=== PATIENT | female | born 1965 | race African-American/Black ===

== ENCOUNTER 2018-01-19 05:42 | Day surgery (SDC) | payer MEDICARE ==
[2018-01-18 10:45] VITALS: BMI 38.0
[2018-01-19] MEDS ORDERED: EPINEPHrine 0.3 MG in Ophthalmic Irrigation Solution 500 ML IVP SCH (05:45)
[2018-01-19] MEDS ORDERED: Cyclopentolate 1% Opth Drop 2 ML BOT ONE (06:04)
[2018-01-19] MEDS ORDERED: Phenylephrine 2.5% Ophth Soln 5 ML BOT ONE (06:04)
[2018-01-19] MEDS ORDERED: Midazolam HCl 2 mg/2 ml Vial ONE (06:49)
[2018-01-19] MEDS ORDERED: PROPOFOL 20 ML ONE (06:49)
[2018-01-19] MEDS ORDERED: Fentanyl 100 MCG/2 ML VIAL ONE (06:49)
--- NOTE | 2018-01-19 09:33 | OP ---
DATE OF PROCEDURE: 01/19/2018 PREOPERATIVE DIAGNOSES: Proliferative diabetic retinopathy and vitreous hemorrhage, right eye. POSTOPERATIVE DIAGNOSES: Proliferative diabetic retinopathy and vitreous hemorrhage, right eye. PROCEDURE: SURGEON: Dr. Ganesh Villalobos ANESTHESIA: Local with monitored anesthesia care. PROCEDURE IN DETAIL: The patient was identified in the preoperative holding area. Appropriate conse nt for the planned surgical procedure on the right eye had been obtained. The patient was transporte d to the operative suite. Appropriate cardiopulmonary established. Local anesthesia obtained using retrobulbar and modified Van Lint lid block using 50/50 mixture of 4% lidocaine, 0.75% bupivacaine. The patient was prepped and draped in the usual sterile manner for ophthalmic surgery on the right ey e. Lid speculum was placed in the right eye. The 25-gauge trocars were placed in conjunctiva and sc marcelle supratemporally, inferotemporally, and supranasally. Infusion line was placed inferotemporally. Light pipe and vitreous cutter were inserted into the eye. Core vitrectomy was performed. Areas o f traction were removed from the retinal periphery in multiple locations using vitreous cutter. Memb juanito was peeled into the retinal periphery without complications. Retinal photocoagulation was placed into all non-macular areas of the retina. No further bleeding wa s identified. Trocars were removed. Eye was noted to retain pressure well. Retrobulbar Kenalog and subconjunctival Ancef were placed. Antibiotic ointment placed, and the eye was patched and shielded . The patient was taken to the postoperative recovery unit in good condition having suffered no imme diate perioperative complications. DISCHARGE INSTRUCTIONS: The patient was instructed to keep patch and shield on, avoid lifting or ashley ding, and follow up in the morning with Dr. Villalobos.
[2018-01-19] MEDS ORDERED: PROPOFOL 200 MG/20 ML VIAL ONE (14:27)
[2018-01-19] MEDS ORDERED: Lidocaine 4% PF 5 ML AMP ONE (14:27)
[2018-01-19] MEDS ORDERED: CEFAZOLIN 1 GM VIAL ONE (14:27)
[2018-01-19] MEDS ORDERED: Lidocaine 1% PF 5 ML VIAL ONE (14:27)
[2018-01-19] MEDS ORDERED: Bupivacaine 0.75% 10 ML AMP ONE (14:27)
[2018-01-19] MEDS ORDERED: Maxitrol 0.1% Opth Oint 3.5 GM TUBE ONE (14:27)
[2018-01-19] MEDS ORDERED: Triamcinolone 40 MG/ML VIAL ONE (14:27)
== END 2018-01-19 08:56 | disposition home or self-care (01) ==
LOC: SDC 05:42
PROVIDERS: ATTEND Ophthalmology Retina Specialist
PROC: 08943ZZ Drainage of Right Vitreous, Percutaneous Approach (ICD-10-PCS; principal; 2018-01-19)
PROC: 08QE3ZZ Repair Right Retina, Percutaneous Approach (ICD-10-PCS; 2018-01-19)
DX: H43.11 Vitreous hemorrhage, right eye (principal); E11.3591 Type 2 diabetes mellitus with proliferative diabetic retinopathy without macular edema, right eye; Z79.899 Other long term (current) drug therapy; Z88.5 Allergy status to narcotic agent; Z98.41 Cataract extraction status, right eye; Z98.42 Cataract extraction status, left eye; Z96.1 Presence of intraocular lens
CPT/HCPCS: 36416; J0171; J0690; J2001; J2250; J2704; J3010; J3301; J3490

== ENCOUNTER 2018-01-20 12:10 | Outpatient (CLI) | payer MEDICARE | END 2018-01-20 12:11 | disposition home or self-care (01) | LOC: BICMAMMO 12:10 | PROVIDERS: ATTEND Obstetrics & Gynecology | DX: Z12.31 Encounter for screening mammogram for malignant neoplasm of breast (principal); R92.1 Mammographic calcification found on diagnostic imaging of breast; Z80.3 Family history of malignant neoplasm of breast | CPT/HCPCS: 77063; 77067 ==

== ENCOUNTER 2020-03-06 14:47 | Outpatient (CLI) | payer MEDICARE, OTHER ==
[2020-03-07 12:04] LABS: SARS-CoV-2 MS2 Positive; SARS-CoV-2 N Gene Negative; SARS-CoV-2 S Gene Negative; SARS-CoV-2 by NAA Not Detected (NotDetected); SARS-CoV-2 orf1ab Negative
== END 2020-03-06 14:48 | disposition home or self-care (01) ==
LOC: LABSCS 14:47
PROVIDERS: ATTEND Physical Medicine & Rehabilitation
DX: Z20.828 Contact with and (suspected) exposure to other viral communicable diseases (principal)
CPT/HCPCS: 87635; U0003

== ENCOUNTER 2020-03-10 10:03 | Day surgery (SDC) | payer MEDICARE ==
[2020-03-07 09:44] VITALS: BMI 40.3
--- NOTE | 2020-03-10 12:21 | MRI ---
MRI lumbar spine noncontrast HISTORY: Low back pain. Lumbar stenosis. FINDINGS: Radiographs are not available for direct correlation, therefore the lowest lumbar type vert ebra will be designated as L5, with the remainder number accordingly. The conus medullaris has normal appearance. Vertebral body heights are maintained. Mild discogenic en dplate changes within the bone marrow. Mild posterior disc bulge at the T11-12 level. T12-L1, L1-2: Mild osteophytosis. Central canal and neural foramina are patent. L2-3: Desiccation of the disc. Minimal disc bulge. Posterior ligamentous thickening. Hypertrophy of t he facets with bilateral joint fluid. Mild stenosis of the central canal and each neural foramen. L3-4: Mild disc space narrowing. Desiccation of the disc. Minimal degenerative spondylolisthesis. Mil d posterior disc bulge. Prominent posterior ligaments thickening and facet hypertrophy with joint fluid. There is severe stenosis of the central canal. Moderate stenosis of each neural foramen, right greater than left. L4-5: Disc space narrowing. Hyperintensity within the posterior aspect of the disc space may represen t intradiscal hemorrhage. Left posterior annular fissure. Mild diffuse posterior disc bulge and circumferential degenerative changes. Moderate stenosis of the central canal. Mild stenosis of each n eural foramen. L5-S1: Posterior annular fissure of the disc. Osseous hypertrophy of the facets. Thecal sac is patent . Moderate right and moderate to severe left foraminal stenoses. IMPRESSION : Prominent multilevel degenerative changes throughout the lumbar spine as detailed above, with central canal and foraminal stenoses. Central canal stenosis most severe at the L3-4 level.
[2020-03-10] MEDS ORDERED: EPHEDRINE 25 MG/5 ML SYRINGE ONE (13:12)
[2020-03-10] MEDS ORDERED: PROPOFOL 200 MG/20 ML VIAL ONE (13:12)
== END 2020-03-10 13:17 | disposition home or self-care (01) ==
LOC: MRI 10:03
PROVIDERS: ATTEND Physical Medicine & Rehabilitation
DX: M48.061 Spinal stenosis, lumbar region without neurogenic claudication (principal); M99.33 Osseous stenosis of neural canal of lumbar region; M25.78 Osteophyte, vertebrae; Z79.899 Other long term (current) drug therapy; Z88.5 Allergy status to narcotic agent
CPT/HCPCS: 72148; J2704

== ENCOUNTER 2021-02-23 16:38 | Outpatient (CLI) | payer MEDICARE ==
[2021-02-23 18:13] LABS: ALT (SGPT) 31 U/L (8-55); AST (SGOT) 25 U/L (5-34); Albumin 3.9 g/dL (3.5-5.0); Alkaline Phosphatase 82 U/L (40-110); Anion Gap 14 mmol/L (10-20); BUN (Urea Nitrogen) 22 mg/dL (9.8-20.1); Bilirubin, Total 0.2 mg/dL (0.2-1.2); Calc. Creatinine Clearance 0 mL/min (70-130); Calcium 9.7 mg/dL (7.8-10.44); Carbon Dioxide 23 mmol/L (22-29); Chloride 113 mmol/L (98-107); Glucose 105 mg/dL (70-105); Potassium 3.9 mmol/L (3.5-5.1); Protein, Total 6.9 g/dL (6.0-8.3); Sodium 146 mmol/L (136-145)
[2021-02-23 18:30] LABS: #Eosinphils 0.1 10x3/uL (0.0-0.5); #Monocytes 0.6 10x3/uL (0.0-1.1); #Neutrophils 3.7 10x3/uL (1.5-8.4); %Basophils 0.3 % (0.0-2.0); %Eosinophils 1.7 % (0.0-6.0); %Lymphocytes 31.8 % (18.0-47.0); %Monocytes 8.9 % (0.0-10.0); Hemoglobin 10.3 g/dL (12.0-15.5); Mean Corpuscular HGB CONC 31.8 g/dL (32.0-36.0); Mean Corpuscular Hemoglobin 28.8 pg (27.0-33.0); Mean Corpuscular Volume 90.5 fl (81.6-98.3); Platelet Count 214 10x3/uL (150-450); Red Blood Cell (RBC) Count 3.58 10x6/uL (3.90-5.03); White Blood Cell (WBC) Count 6.5 10x3/uL (3.5-10.5)
[2021-02-24 12:41] LABS: SARS-CoV-2 PCR by NAA Not Detected (NotDetected)
== END 2021-02-23 16:39 | disposition home or self-care (01) ==
LOC: LABBT 16:38
PROVIDERS: ATTEND Surgery
DX: Z01.818 Encounter for other preprocedural examination (principal); M43.16 Spondylolisthesis, lumbar region; M54.5 Low back pain; Z98.1 Arthrodesis status; Z20.822 Contact with and (suspected) exposure to COVID-19
CPT/HCPCS: 80053; 85025; U0003; U0005; 93005; 93010

== ENCOUNTER 2021-02-26 06:16 | Day surgery (SDC) | payer MEDICARE ==
[2021-02-24 12:40] VITALS: BMI 38.0
[2021-02-26] MEDS ORDERED: Bupivacaine 0.25% HCL 30 ML VIAL ONE (06:46)
[2021-02-26] MEDS ORDERED: Lidocaine 1% w/Epinephrine 1:100K 20 ML VIAL ONE (06:46)
[2021-02-26] MEDS ORDERED: Fentanyl 100 MCG/2 ML VIAL ONE ×2 (06:48→09:18)
[2021-02-26] MEDS ORDERED: Dexamethasone 20 MG/5 ML VIAL ONE (07:57)
[2021-02-26] MEDS ORDERED: Rocuronium Bromide 10 MG/ML (10ML VIAL) ONE (07:57)
[2021-02-26] MEDS ORDERED: PROPOFOL 200 MG/20 ML VIAL ONE (07:57)
[2021-02-26] MEDS ORDERED: Ondansetron PF 4 MG/2 ML Vial ONE (07:57)
[2021-02-26] MEDS ORDERED: Glycopyrrolate 0.2 MG/ML 5 ML SYRINGE ONE (07:57)
== END 2021-02-26 10:40 | disposition home or self-care (01) ==
LOC: SDC 06:16
PROVIDERS: ATTEND Surgery
PROC: 0WUF0JZ Supplement Abdominal Wall with Synthetic Substitute, Open Approach (ICD-10-PCS; principal; 2021-02-26)
DX: K43.9 Ventral hernia without obstruction or gangrene (principal); E11.9 Type 2 diabetes mellitus without complications; M19.90 Unspecified osteoarthritis, unspecified site; G89.29 Other chronic pain; I10 Essential (primary) hypertension; E66.01 Morbid (severe) obesity due to excess calories; Z68.38 Body mass index [BMI] 38.0-38.9, adult; Z87.891 Personal history of nicotine dependence; Z79.899 Other long term (current) drug therapy; Z88.5 Allergy status to narcotic agent; Z98.1 Arthrodesis status; Z98.84 Bariatric surgery status
CPT/HCPCS: J0690; J1100; J2405; J2704; J3010; S0020

== ENCOUNTER 2021-07-08 12:05 | Outpatient (CLI) | payer MEDICARE | END 2021-07-08 12:06 | disposition home or self-care (01) | LOC: BICULT 12:05 | PROVIDERS: ATTEND Family Medicine | DX: M79.89 Other specified soft tissue disorders (principal) | CPT/HCPCS: 76999 ==

== ENCOUNTER 2022-03-18 14:33 | Outpatient (CLI) | payer MEDICARE | END 2022-03-18 14:34 | disposition home or self-care (01) | LOC: CT 14:33 | PROVIDERS: ATTEND Family Medicine | DX: R42 Dizziness and giddiness (principal); R55 Syncope and collapse; W19.XXXA Unspecified fall, initial encounter | CPT/HCPCS: 70450 ==

== ENCOUNTER 2023-04-01 09:31 | Outpatient (CLI) | payer MEDICARE ==
[2023-04-01] MEDS ORDERED: Iopamidol 370 76% 100 ML VIAL ONE (14:02)
== END 2023-04-01 09:32 | disposition home or self-care (01) ==
LOC: BICCT 09:31
PROVIDERS: ATTEND Family Medicine
DX: K43.2 Incisional hernia without obstruction or gangrene (principal); K42.9 Umbilical hernia without obstruction or gangrene; K57.30 Diverticulosis of large intestine without perforation or abscess without bleeding; K22.89 Other specified disease of esophagus; Z90.49 Acquired absence of other specified parts of digestive tract
CPT/HCPCS: 74177

== ENCOUNTER 2023-12-23 09:29 | Outpatient (CLI) | payer MEDICARE | END 2023-12-23 09:30 | disposition home or self-care (01) | LOC: BICMAMMO 09:29 | PROVIDERS: ATTEND Physician Assistant | DX: N64.4 Mastodynia (principal) | CPT/HCPCS: 76642; 77066; G0279 ==